=== PATIENT | female | born 1945 | race Caucasian/White ===

== ENCOUNTER 2021-06-18 06:51 | Observation (INO) | payer MEDICARE ==
[2021-06-16 14:51] LABS: BASOPHILS % 0.4 % (0.0-1.0); EOSINOPHILS # (AUTO) 0.1 (0.0-0.4); EOSINOPHILS % 1.3 % (0.0-6.0); HEMATOCRIT 38.3 % (34.2-44.1); HEMOGLOBIN 12.6 g/dL (12.0-16.0); LYMPHOCYTES # (AUTO) 1.1 (1.0-3.2); LYMPHOCYTES % 16.3 % (18.0-39.1); MEAN CORPUSCULAR HGB CONC 32.9 g/dL (31-35); MEAN CORPUSCULAR VOLUME 94.1 fL (81-99); MONOCYTES # (AUTO) 0.5 (0.2-0.8); MONOCYTES % 7.8 % (4.4-11.3); NEUTROPHILS # (AUTO) 5.1 (2.1-6.9); NEUTROPHILS % 73.8 % (38.7-80.0); PLATELET COUNT 273 x10e3/uL (140-360); RED BLOOD COUNT 4.07 x10e6/uL (3.6-5.1); RED CELL DISTRIBUTION WIDTH 13.1 % (11.7-14.4)
[2021-06-16 15:07] LABS: INR 0.9; PROTHROMBIN TIME 12.9 seconds (11.9-14.5)
[2021-06-16 15:08] LABS: PARTIAL THROMBOPLASTIN TIME 35.1 seconds (23.8-35.5)
[2021-06-16 15:11] LABS: ANION GAP 16.1 mmol/L (8-16); CALCIUM 9.4 mg/dL (8.4-10.2); CREATININE, SERUM 0.76 mg/dL (0.57-1.11); POTASSIUM 4.1 mmol/L (3.5-5.1)
[~2021-06-18] VITALS: Ht 165.1 cm; Wt 65.3 kg
[~2021-06-18 06:51] MED LIST: CLOPIDOGREL75 MG PO; DEXILANT30 MG PO; MULTIVITAMINS PO; PROBIOTIC & AC1 EACH PO; SPIRONOLACTONE25 MG PO; VITAMIN B122500 MCG PO; VITAMIN D PO; VITAMIND PO; Z.0.AMARYL1 MG PO; Z.0.ASPIRIN CHEW81 M PO; Z.0.COZAAR100 MG PO; Z.0.ESIDRIX25 MG PO; Z.0.PREMARIN0.625 MG PO; Z.0.ZOCOR40 MG PO; Z.1.LEVOTHYROXINE100 PO; Z.1.METFORMIN HCL100 PO
[2021-06-18] MEDS ORDERED: LIDOCAINE 1% W/EPINEPHRINE 20 ML VIAL ONE (06:54)
[2021-06-18] MEDS ORDERED: THROMBIN FOR SOLN 5,000 UNIT VIAL ONE (06:55)
[2021-06-18] MEDS ORDERED: Vancomycin IV 1 GM VIAL ONE (06:55)
[2021-06-18] MEDS ORDERED: SODIUM CHLORIDE 0.9% 50ML 100 ML ONE (07:39)
[2021-06-18] MEDS ORDERED: SODIUM CHLORIDE 0.9% 50ML 50 ML ONE (07:48)
[2021-06-18] MEDS ORDERED: BISOPROLOL FUMAR5 MG PO (08:08)
[2021-06-18] MEDS ORDERED: HYDROCODON-ACE1 EA12 PO (11:24)
[2021-06-18] MEDS ORDERED: NON-FORMULARY MEDICATION (Metformin Hcl 1,000 MG) PO SCH (11:30)
[2021-06-18] MEDS ORDERED: VITAMIN D 50 MCG PO SCH (11:30)
[2021-06-18] MEDS ORDERED: CARISOPRODOL 350 MG TAB PO PRN (11:30)
[2021-06-18] MEDS ORDERED: ONDANSETRON HCL INJ 2MG/ML 2ML 2 MG/ML VIAL IV PRN (11:30)
[2021-06-18] MEDS ORDERED: HYDROMORPHONE 2MG/ML 2 MG/ML ML IV PRN (11:30)
[2021-06-18] MEDS ORDERED: MAGNESIUM/ALUMINUM/SIMETHICONE 30 ML UDC PO PRN (11:30)
[2021-06-18] MEDS ORDERED: MORPHINE SULFATE 5 MG/ML VIAL IM PRN (11:30)
[2021-06-18] MEDS: LACTATED RINGER'S 1,000 ML IV SCH ×2 (11:30→20:09)
[2021-06-18] MEDS ORDERED: PROMETHAZINE HCL (IM) 25 MG/ML VIAL IM PRN (11:30)
[2021-06-18] MEDS ORDERED: OXYCODONE/ACETAMINOPHEN 5-325 1 EACH TABLET PO PRN (11:30)
[2021-06-18] MEDS ORDERED: ACETAMINOPHEN 325 MG TAB PO PRN (11:30)
[2021-06-18] MEDS ORDERED: MIDAZOLAM HCL 2 MG/2 ML VIAL ONE (12:24)
[2021-06-18] MEDS ORDERED: FENTANYL CITRATE/PF 100MCG/2 ML INJ ONE (12:24)
[2021-06-18 14:51] VITALS: BP 135/68
[2021-06-18 14:52] VITALS: BP 135/68
[2021-06-18 15:00] VITALS: BP 135/68
[2021-06-18 15:35] VITALS: BP 139/72
[2021-06-18] MEDS: METFORMIN HCL 500 MG TAB PO SCH (16:24)
[2021-06-18] MEDS: Cefazolin 1 GM in SODIUM CHLORIDE 0.9% 50ML 50 ML IV SCH (16:25)
[2021-06-18] MEDS ORDERED: ROCURONIUM BROMIDE 10 MG/ML 5ML VIAL IV ONE (18:11)
[2021-06-18] MEDS ORDERED: DEXAMETHASONE SOD PHOS INJ 4 MG/ML SDV ONE (18:11)
[2021-06-18] MEDS ORDERED: POVIDONE IODINE 0.05% 0.05 % ML PO ONE (18:11)
[2021-06-18] MEDS ORDERED: LIDOCAINE HCL 2% LOCAL INJ 5 ML SDV VIAL INJ ONE (18:11)
[2021-06-18] MEDS ORDERED: PROPOFOL IV EMULSION 10 MG/ML 20 ML VIAL ONE (18:11)
[2021-06-18] MEDS ORDERED: ONDANSETRON HCL INJ 2MG/ML 2ML 2 MG/ML VIAL ONE (18:11)
[2021-06-18] MEDS ORDERED: EPHEDRINE SULFATE INJ 50 MG/ML VIAL ONE (18:11)
[2021-06-18] MEDS ORDERED: SEVOFLURANE INHAL SOLN 250 ML PEN BTL ONE (18:11)
[2021-06-18 19:50] VITALS: BP 133/68
[2021-06-18 21:00] VITALS: BP 133/68
[2021-06-18] MEDS ORDERED: SIMVASTATIN 40 MG TAB PO SCH (21:00)
[2021-06-18] MEDS ORDERED: ZOLPIDEM TARTRATE 5 MG TAB PO PRN (21:00)
[2021-06-18] MEDS ORDERED: BISOPROLOL FUMARATE 10 MG TAB PO SCH (21:00)
[2021-06-18] MEDS ORDERED: BISOPROLOL FUMARATE 2.5 MG PO SCH (21:00)
[2021-06-19] MEDS: Cefazolin 1 GM in SODIUM CHLORIDE 0.9% 50ML 50 ML IV SCH (01:18)
[2021-06-19 01:30] VITALS: BP 132/51
[2021-06-19] MEDS: LACTATED RINGER'S 1,000 ML IV SCH (04:50)
[2021-06-19 05:54] VITALS: BP 116/57
[2021-06-19] MEDS ORDERED: LEVOTHYROXINE SODIUM 100 MCG TAB PO SCH (06:00)
[2021-06-19 08:00] VITALS: BP 129/64
[2021-06-19 08:12] VITALS: BP 129/64
[2021-06-19] MEDS: METFORMIN HCL 500 MG TAB PO SCH (08:36)
[2021-06-19] MEDS ORDERED: SPIRONOLACTONE 25 MG TAB PO SCH (09:00)
[2021-06-19] MEDS ORDERED: MULTIVITAMINS PO SCH (09:00)
[2021-06-19] MEDS ORDERED: CYANOCOBALAMIN 500 MCG PO SCH (09:00)
[2021-06-19] MEDS ORDERED: LACTOBACILLUS ACIDOPHILUS CAPSULE PO SCH (09:00)
[2021-06-19] MEDS ORDERED: MULTIVITAMINS/MINERALS TAB PO SCH (09:00)
[2021-06-19] MEDS ORDERED: LOSARTAN POTASSIUM 100 MG TAB PO SCH (09:00)
[2021-06-19] MEDS ORDERED: CYANOCOBALAMIN 1,000 MCG TAB PO SCH (09:00)
[2021-06-22] MEDS ORDERED: CHOLECALCIFEROL 1,000 UNIT TAB PO SCH (09:00)
== END 2021-06-19 09:49 | disposition home or self-care (01) ==
LOC: OR 06:51 → PACU V 11:22 → MED/SURG3 14:22
PROVIDERS: ADMIT Neurological Surgery; ATTEND Neurological Surgery
DX: M48.062 Spinal stenosis, lumbar region with neurogenic claudication (principal); M79.662 Pain in left lower leg; M79.661 Pain in right lower leg; I10 Essential (primary) hypertension; E11.9 Type 2 diabetes mellitus without complications; M19.90 Unspecified osteoarthritis, unspecified site; Z20.822 Contact with and (suspected) exposure to COVID-19; Z01.818 Encounter for other preprocedural examination
CPT/HCPCS: 36415 ×3; 63047; 63048; 71046; 72020; 80048; 82948 ×2; 85025; 85610; 85730; 86850; 86900; 88304; 88305; 88311; 93005; G0378 ×2; J0690 ×2; J1100; J2001; J2250; J2405; J2704; J3010; J3370; J7121 ×2; U0002

== ENCOUNTER 2021-08-14 18:54 | Emergency (ER) | payer MEDICARE, OTHER ==
[~2021-08-14] VITALS: Ht 165.1 cm; Wt 65.3 kg
[~2021-08-14 18:54] MED LIST changes: +BISOPROLOL FUMAR5 MG PO; +HYDROCODON-ACE1 EA12 PO
[2021-08-14] MEDS ORDERED: ACETAMINOPHEN 325 MG TAB PO ONE (19:30)
== END 2021-08-14 21:55 | disposition home or self-care (01) ==
LOC: ER 19:30
DX: S46.912A Strain of unspecified muscle, fascia and tendon at shoulder and upper arm level, left arm, initial encounter (principal); S90.02XA Contusion of left ankle, initial encounter; V43.62XA Car passenger injured in collision with other type car in traffic accident, initial encounter; Y92.488 Other paved roadways as the place of occurrence of the external cause; E11.65 Type 2 diabetes mellitus with hyperglycemia; I10 Essential (primary) hypertension; E78.5 Hyperlipidemia, unspecified; M06.9 Rheumatoid arthritis, unspecified; I25.10 Atherosclerotic heart disease of native coronary artery without angina pectoris
CPT/HCPCS: 36415; 70450; 72125; 82948; 99283